=== PATIENT | female | born 1980 | race African-American/Black ===

== ENCOUNTER 2016-03-07 07:42 | Emergency (ER) | payer MEDICAID, OTHER ==
[~2016-03-07] VITALS: Ht 162.6 cm; Wt 55.3 kg
[~2016-03-07 07:42] MED LIST: NITROFURANTOIN100 M2 ORAL; NKM
--- NOTE | 2016-03-07 08:18 | Emergency Room Report ---
History of Present Illness General Chief Complaint: Female Urogenital Problems Source: Patient Present Illness HPI This is a 35-year-old, generally healthy woman presenting with complaints of painless hematuria. She Has a history of abnormal Pap smear, approximately 9 years ago, treated by gynecology, with surveillance over the last 9 years, no recurrence. no hx of fibrois, cancer in the bladder or kidney stone that she reports. Her last period and that at the end of last month. Denies possibility of . States that she was treated with an antibiotic regimen of amoxicillin x10 days, started on February 22, and was for earache, possible ear infection. Denies any history of trauma to the area or complaints of flank pain, abdominal pain, dysuria. She has had urinary tract infections in the past and denies symptoms that are similar to this. Denies back pain or or shortness of breath. She states these redness, and her urine has lasted approximately 2 weeks, is intermittent but [place] present, and she is seen some specks of blood possible small clots in her urine intermittently as well. No fevers no chills no diarrhea. Allergies: Coded Allergies: No Known Allergies (Unverified , 02/15/14) Patient History Past Medical History: see triage record Social History: Denies: alcohol use, smoking Last Menstrual Period: 02/10/16 Now: No Immunizations: UTD Reviewed Nursing Documentation: PMH: Agreed Nursing Documentation-PM Past Medical History: No Stated History Review of Systems Constitutional: Denies: fever, malaise ENT: Reports: ear pain - resolved, Denies: ear discharge Genitourinary: Reports: hematuria Musculoskeletal: Denies: joint pain Skin: Denies: rash Psychiatric: Denies: HI, SI, anxiety Endocrine: Denies: excessive sweating, flushing All Other Systems: negative except mentioned in HPI Physical Exam Vital Signs Date Time Temp Pulse Resp B/P Pulse Ox O2 Delivery O2 Flow Rate FiO2 03/07/16 07:56 99.0 90 16 106/72 100 Room Air Sp02 EP Interpretation: reviewed, normal General Appearance: normal inspection, well appearing, no apparent distress, alert Head: atraumatic Eyes: bilateral eye normal inspection ENT: normal ENT inspection, hearing grossly normal, normal voice Neck: normal inspection, full range of motion, supple, no bony tend Respiratory: normal inspection, lungs clear, normal breath sounds, no respiratory distress, no retraction, no wheezing Cardiovascular #1: regular rate, rhythm, no edema Gastrointestinal: normal inspection, normal bowel sounds, non tender, soft, no guarding, no hernia Genitourinary: no CVA tenderness Musculoskeletal: normal inspection, back normal, normal range of motion Neurologic: normal inspection, alert, responsive, speech normal Psychiatric: normal inspection, judgement/insight normal, mood/affect normal Skin: normal inspection, normal color, no rash Medical Decision Making Diagnostic Impression: Primary Impression: Hematuria Additional Impression: Hematuria of undiagnosed cause ER Course Patient presented with 2 weeks of hematuria, otherwise normal exam, no indication to suggest UTI or kidney stone. She did have a recent upper respiratory infection, ear infection treated with antibiotics. As a potential for such conditions such as glomerulonephritis status post streptococcal infection or other infections. We'll check basic blood work to determine if she has any signs of anemia, infection, chemistry abnormalities to suggest renal disease. Patient will also have urinalysis, urine testing to look for signs of infection this is could be a painless infection, abnormal from her normal. Her vitals are otherwise stable and she is well-appearing without any signs of serious systemic illnesses. Based on labs and determine followup or imaging studies are required. Urinalysis, chemistry, blood work reviewed and no sign of anemia or renal dysfunction but there is bleeding in the bladder without sign of infection. I discussed results with the patient, and offered a CAT scan of the abdomen and pelvis to further evaluation for possible mass, structures. Though at this time the patient prefers this to followup with primary Dr. I did recommend she see a urologist and welding estimator for possible evaluation of this painless hematuria. Laboratory Tests Test 03/07/16 08:10 03/07/16 08:15 Urine Color Pale yellow Urine Appearance Cloudy Urine pH 6 (4.5-8.0) Urine Specific [place] 1.015 (1.005-1.035) Urine Protein 2+ (NEGATIVE) H Urine Glucose (UA) Negative (NEGATIVE) Urine Ketones Negative (NEGATIVE) Urine Occult Blood 5+ (NEGATIVE) H Urine Nitrite Negative (NEGATIVE) Urine Bilirubin Negative (NEGATIVE) Urine Urobilinogen Normal MG/DL (0.0-1.0) Urine Leukocyte Esterase 1+ (NEGATIVE) H Urine RBC 60-80 /HPF (0 - 2) H Urine WBC 2-4 /HPF (0 - 2) Urine Squamous Epithelial Cells Few /LPF (NONE/OCC) Urine Bacteria Few /HPF (NONE) Urine HCG, Qualitative Negative White Blood Count 5.6 K/UL (4.8-10.8) Red Blood Count 4.58 M/UL (4.20-5.40) Hemoglobin 13.2 G/DL (12.0-16.0) Hematocrit 42.2 % (37.0-47.0) Mean Corpuscular Volume 92 FL (80-99) Mean Corpuscular Hemoglobin 28.9 PG (27.0-31.0) Mean Corpuscular Hemoglobin Concent 31.4 G/DL (32.0-36.0) L Red Cell Distribution Width 12.7 % (11.6-14.8) Platelet Count 358 K/UL (150-450) Mean Platelet Volume 6.8 FL (6.5-10.1) Neutrophils (%) (Auto) 58.4 % (45.0-75.0) Lymphocytes (%) (Auto) 30.0 % (20.0-45.0) Monocytes (%) (Auto) 8.1 % (1.0-10.0) Eosinophils (%) (Auto) 2.5 % (0.0-3.0) Basophils (%) (Auto) 1.0 % (0.0-2.0) Sodium Level 140 mEQ/L (135-145) Potassium Level 3.9 mEQ/L (3.4-4.9) Chloride Level 101 mEQ/L (98-107) Carbon Dioxide Level 27 mEQ/L (20-30) Anion Gap 12 (5-15) Blood Urea Nitrogen 8 mg/dL (7-23) Creatinine 0.8 mg/dL (0.5-0.9) Estimat Glomerular Filtration Rate > 60 mL/min (>60) Glucose Level 96 mg/dL (74-106) Calcium Level 9.4 mg/dL (8.6-10.2) Lab Results Impression Blood in urine, good chemistry and CBC without indication of renal dysfunction or significant infections. Urinalysis does not have indices for suggest infection. Last Vital Signs Date Time Temp Pulse Resp B/P Pulse Ox O2 Delivery O2 Flow Rate FiO2 03/07/16 07:56 99.0 90 16 106/72 100 Room Air Jean Claude Pope MD Mar 07, 2016 08:18
[2016-03-07 08:37] LABS: APPEARANCE,URINE CLOUDY; KETONES,URINE NEGATIVE (NEGATIVE); LEUKOCYTE ESTERASE ,URINE 1+ (NEGATIVE); NITRITE,URINE NEGATIVE (NEGATIVE); PH,URINE 6 (4.5-8.0); PROTEIN,URINE 2+ (NEGATIVE); UROBILINOGEN,URINE NORMAL MG/DL (0.0-1.0)
[2016-03-07 08:49] LABS: EOSINOPHILS % (AUTO) 2.5 % (0.0-3.0); MEAN CORPUSCULAR HEMOGLOBIN 28.9 PG (27.0-31.0); MEAN CORPUSCULAR HGB CONC 31.4 G/DL (32.0-36.0); MEAN CORPUSCULAR VOLUME 92 FL (80-99); MEAN PLATELET VOLUME 6.8 FL (6.5-10.1); MONOCYTES % (AUTO) 8.1 % (1.0-10.0); NEUTROPHILS % (AUTO) 58.4 % (45.0-75.0); PLATELET COUNT 358 K/UL (150-450); RED BLOOD COUNT 4.58 M/UL (4.20-5.40); RED CELL DISTRIBUTION WIDTH 12.7 % (11.6-14.8); WHITE BLOOD COUNT 5.6 K/UL (4.8-10.8)
[2016-03-07 08:56] LABS: ANION GAP 12 (5-15); CALCIUM 9.4 mg/dL (8.6-10.2); CARBON DIOXIDE 27 mEQ/L (20-30); CHLORIDE 101 mEQ/L (98-107); CREATININE 0.8 mg/dL (0.5-0.9); GLOMERULAR FILTRATION RATE > 60 mL/min (>60); HEMOLYSIS 2; POTASSIUM 3.9 mEQ/L (3.4-4.9); SODIUM 140 mEQ/L (135-145)
[2016-03-07 09:01] LABS: BACTERIA,URINE FEW /HPF; RBC,URINE 60-80 /HPF (0 - 2); SQUAMOUS EPITHELIAL CELL,UR FEW /LPF (NONE/OCC)
[2016-03-07 09:17] VITALS: BP 106/72
[2016-03-07 09:18] VITALS: BP 106/72
== END 2016-03-07 09:24 | disposition home or self-care (01) ==
LOC: EMR 08:10
DX: R31.9 Hematuria, unspecified (principal)
CPT/HCPCS: 36415; 80048; 81003; 81025; 85025; 99282